=== PATIENT | female | born 1985 | race Caucasian/White ===

== ENCOUNTER 2016-09-28 06:01 | Day surgery (SDC) | payer OTHER ==
[2016-09-24 10:25] VITALS: BMI 32.9
[2016-09-28 06:30] VITALS: PULSE 63; TEMP 97.9
[2016-09-28] MEDS ORDERED: MIDAZOLAM 2 MG/2 ML VIAL ONE (06:48)
[2016-09-28] MEDS ORDERED: fentaNYL (PF) 50 MCG/ML 2 ML AMP ONE (06:49)
[2016-09-28] MEDS ORDERED: BENZOCAINE SPRAY 100 APPLIC/CAN MUCOUS MEM ONE ×3 (06:58→07:17)
[2016-09-28] MEDS ORDERED: SODIUM CHLORIDE 0.9% 500 ML IV ONE (07:06)
[2016-09-28] MEDS ORDERED: MIDAZOLAM 2 MG/2 ML VIAL IVP ONE (07:17)
[2016-09-28] MEDS ORDERED: fentaNYL (PF) 50 MCG/ML 2 ML AMP IV ONE (07:17)
[2016-09-28] MEDS ORDERED: SODIUM CHLORIDE 0.9% 1,000 ML IV SCH (07:45)
--- NOTE | 2016-09-28 07:52 | ECHOT ---
DATE OF SERVICE: INDICATION: Evaluation of cardiac source for TIA. PROCEDURE: After explaining the procedure to the patient as well as risks and complications, blood pressure, heart rate, O2 saturation was monitored. The throat was sprayed with Cetacaine. She received 2 mg of intravenous Versed, 50 mcg intravenous fentanyl. The probe was introduced into the esophagus without difficulty. Images were obtained. The probe was removed. There was no immediate complication. FINDINGS: Left atrial size is normal. Left atrial appendage is normal. Left ventricle size and systolic function normal. The aortic valve, mitral valve, tricuspid valve are normal. Descending thoracic aortic appears to be normal. Contrast bubble study revealed no evidence of shunting across the interatrial septum with Valsalva maneuver. There was no pericardial effusion. Doppler pulse wave obtained revealed mild mitral and tricuspid regurgitation with trace aortic regurgitation and there was no shunting by color Doppler study. CONCLUSION: 1. Normal left ventricular size and systolic function. 2. Normal appearance of left atrial appendage. 3. No evidence of shunting across the interatrial septum. 4. Mild mitral, tricuspid with trace aortic regurgitation. 5. No pericardial effusion. 6. Normal appearance of the descending thoracic aorta. FINDINGS: FINAL IMPRESSION:
[2016-09-28 08:50] VITALS: RESP 18
[2016-09-28] MEDS ORDERED: NON-FORMULARY DRUG (Aspirin Ec 162 MG) PO SCH (09:00)
[2016-09-28] MEDS ORDERED: IODINE TOPICAL SCH (09:00)
[2016-09-28] MEDS ORDERED: NON-FORMULARY DRUG (Cod Liver Oil [Cod Liver Oil] 1 CAP) PO SCH (09:00)
[2016-09-28] MEDS ORDERED: NON-FORMULARY DRUG (L.Acidoph,Paracasei, B.Lactis [Probiotic] 1 CAP) PO SCH (09:00)
[2016-09-28] MEDS ORDERED: NON-FORMULARY DRUG (Vitamin B Complex [Vitamin B Complex] 1 CAP) PO SCH (09:00)
[2016-09-28] MEDS ORDERED: MAGNESIUM OXIDE 400 MG TAB PO SCH (09:00)
[2016-09-28] MEDS ORDERED: [UNRECOGNIZED DRUG - REMARK] PO SCH (09:00)
[2016-09-28 10:00] VITALS: BP 110/68
== END 2016-09-28 09:22 | disposition home or self-care (01) ==
LOC: CATHCVL 06:01
PROVIDERS: ATTEND Internal Medicine Interventional Cardiology
DX: Z86.73 Personal history of transient ischemic attack (TIA), and cerebral infarction without residual deficits (principal); I08.3 Combined rheumatic disorders of mitral, aortic and tricuspid valves
CPT/HCPCS: 93312; 93320; 93325; 81025; J2250; J3010

== ENCOUNTER → 2016-10-08 | Outpatient (CLI) | payer OTHER ==
[2016-10-08 13:47] LABS: CH 30.4; CHCM 33.7; HCT 41.8 % (34.0-46.0); HDW 2.44; MCH 30.3 pg (25.0-35.0); MCHC 33.3 g/dL (31.0-37.0); MCV 90.7 fL (80.0-100.0); Mean Platelet Volume 7.9; RBC 4.61 m/uL (3.80-5.40); RDW 13.3 % (11.5-15.5); WBC 5.9 k/uL (3.8-10.6)
[2016-10-08 14:07] LABS: ALT 34 U/L (9-52); AST 23 U/L (14-36); Alkaline Phosphatase 61 U/L (38-126); Anion Gap 10 mmol/L; Blood Urea Nitrogen 12 mg/dL (7-17); C Reactive Protein <5.0 mg/L (<10.0); Calcium 9.4 mg/dL (8.4-10.2); Carbon Dioxide 28 mmol/L (22-30); Chloride 102 mmol/L (98-107); Cholesterol 158 mg/dL (<200); Glucose 76 mg/dL (74-99); HDL Cholesterol 94 mg/dL (40-60); Non-African American GFR(MDRD) >60 (>60 ml/min/1.73 sqM); Potassium 4.7 mmol/L (3.5-5.1); Rheumatoid Factor, Qnt <9 IU/mL (<12); Sodium 140 mmol/L (137-145); Total Bilirubin 0.7 mg/dL (0.2-1.3); Triglycerides 24 mg/dL (<150)
[2016-10-08 15:06] LABS: Erythrocyte Sedimentation Rate 4 mm/hr (0-20)
[2016-10-08 19:40] LABS: ANA w/Reflex to Titer NEGATIVE (NEGATIVE)
== END | disposition home or self-care (01) ==
LOC: LABWHC1 12:40
PROVIDERS: ATTEND Internal Medicine
DX: I73.00 Raynaud's syndrome without gangrene (principal); D69.1 Qualitative platelet defects; G43.409 Hemiplegic migraine, not intractable, without status migrainosus; E03.9 Hypothyroidism, unspecified; E55.9 Vitamin D deficiency, unspecified
CPT/HCPCS: 36415; 80053; 80061; 82306; 84443; 84481; 85027; 85652; 86038; 86140; 86431

== ENCOUNTER → 2017-07-29 | Outpatient (CLI) | payer OTHER ==
--- NOTE | 2017-07-29 11:31 | ECHOS ---
STRESS ECHOCARDIOGRAM DATE OF SERVICE: 07/29/2017 MEDICATIONS:: Synthroid, aspirin, nitro, magnesium. BASELINE HEART RATE: 79 BASELINE BLOOD PRESSURE: 141/38 MAXIMUM HEART RATE: 165 MAXIMUM BLOOD PRESSURE: 186/100 85% MPHR: 160 100% MPHR: 188 METS: 11.9 MAXIMUM STAGE REACHED: IV TOTAL EXERCISE TIME: 10 minutes INDICATIONS: Angina. CLINICAL INFORMATION: The patient was exercised for a total period of 10 minutes. Peak heart rate 165 was achieved. Maximum blood pressure 186/100 mmHg was noted. The resting EKG shows normal sinus rhythm with normal VA interval and QRS duration and normal ST-T waves. No ST- segment depression suggestive of ischemia is noted. The baseline echocardiographic images reveal normal left ventricular chamber size with normal left ventricular systolic function. In the immediate postexercise, normal increase in the wall thickness and contractility is noted. FINAL IMPRESSION: This stress echocardiographic study is negative for stress-induced ischemia. EKG portion of the stress test is not suggestive of ischemia. The patient's exercise tolerance is normal. MMODL / IJN: [id number] /
== END | disposition home or self-care (01) ==
LOC: RADNMMAIN 09:05
PROVIDERS: ATTEND Internal Medicine
DX: I20.1 Angina pectoris with documented spasm (principal)
CPT/HCPCS: 93017; 93350

== ENCOUNTER → 2017-09-29 | Outpatient (CLI) | payer OTHER ==
[2017-09-29 13:07] LABS: T4, Free (Free Thyroxine) 0.85 ng/dL (0.78-2.19)
== END | disposition home or self-care (01) ==
LOC: LABWHC1 12:21
PROVIDERS: ATTEND Internal Medicine
DX: E03.9 Hypothyroidism, unspecified (principal)
CPT/HCPCS: 36415; 84439; 84443; 84481

== ENCOUNTER 2017-11-19 10:23 | Emergency (ER) | payer OTHER ==
[2017-11-19 10:38] VITALS: BP 115/72; PULSE 93; RESP 17; TEMP 98.6
--- NOTE | 2017-11-19 11:32 | XR ---
Soft tissue neck HISTORY: hair tie caught in throat, foreign body, pain 2 views of the neck There are overlying artifacts. No radiopaque foreign body evident. Airway is patent. Epiglottis shows a normal appearance in profile. Loss of lordosis in the cervical spine may be positional or due to m uscle spasm. Disc spaces maintained. Prevertebral soft tissues are normal. Cervical vertebral bodies show preserved height, alignment, and bone mineralization. IMPRESSION: No significant abnormalities evident, follow-up as indicated
--- NOTE | 2017-11-19 12:30 | ED ---
General Adult HPI - General Chief complaint: Recheck/Abnormal Lab/Rx Stated complaint: Hair tie stuck in throat Time Seen by Provider: 11/19/17 12:09 Source: patient, RN notes reviewed Mode of arrival: ambulatory Limitations: no limitations - History of Present Illness Initial comments: 32-year-old female presents to the emergency department with a chief complaint of throat irritation. She states that she was doing her child's hair and she accidentally swallowed one of the rubber bands. She states she now has some irritation to the right side of her throat. She states she is not having shortness of breath she's not having difficulty breathing. She feels as if it might be stuck to the right side of her throat. She states she does not feel that she's inhaled it. She states that she is not having any trouble eating. She was concerned due to the continued irritation so she called her doctor and was referred here. Patient denies any recent fever, chills, shortness of breath , chest pain, back pain, abdominal pain, nausea vomiting, numbness or tingling, dysuria or hematuria, constipation or diarrhea, headaches or visual changes, or any other current symptoms. - Related Data Home Medications Medication Instructions Recorded Confirmed Pnv with Ca,No.71/Iron/FA 1 tab PO DAILY 07/03/14 09/24/16 [Vol-Plus Tablet] Aspirin EC [Ecotrin Low Dose] 162 mg PO DAILY 01/30/16 09/24/16 Cod Liver Oil 1 cap PO DAILY 01/30/16 09/24/16 L.acidoph,Paracasei, B.lactis 1 cap PO DAILY 01/30/16 09/24/16 [Probiotic] Magnesium Oxide [Mag-Ox] 400 mg PO DAILY 01/30/16 09/24/16 Vitamin B Complex 1 cap PO DAILY 01/30/16 09/24/16 Iodine Topical 1 applicate TOPICAL DAILY 09/24/16 09/24/16 Allergies Allergy/AdvReac Type Severity Reaction Status Date / Time morphine Allergy Rash/Hives Verified 11/19/17 10:34 Review of Systems ROS Statement: Those systems with pertinent positive or pertinent negative responses have been documented in the HPI. ROS Other: All systems not noted in ROS Statement are negative. Past Medical History Past Medical History: Chest Pain / Angina, CVA/TIA, Thyroid Disorder Additional Past Medical History / Comment(s): "sticky platelet syndrome", hx SVT , lacie's thyroiditis,TIA-memory recall diminished History of Any Multi-Drug Resistant Organisms: None Reported Past Surgical History: Adenoidectomy, Section, Tonsillectomy Additional Past Surgical History / Comment(s): leep cervical displasia,c- section x 4 Past Anesthesia/Blood Transfusion Reactions: No Reported Reaction Additional Past Anesthesia/Blood Transfusion Reaction / Comment(s): no hx blood transfusion Past Psychological History: No Psychological Hx Reported Smoking Status: Never smoker Past Alcohol Use History: None Reported Past Drug Use History: None Reported - Past Family History Father Family Medical History: No Reported History Mother Family Medical History: Cancer Additional Family Medical History / Comment(s): AAA; multiple miscarriages Brother(s) Family Medical History: No Reported History Sister(s) Family Medical History: No Reported History Daughter(s) Additional Family Medical History / Comment(s): gene mutation - vascular ehlors danlos syndrome-not confirmed General Exam Limitations: no limitations General appearance: alert, in no apparent distress Head exam: Present: atraumatic, normocephalic, normal inspection Eye exam: Present: normal appearance, PERRL, EOMI. Absent: scleral icterus, conjunctival injection, periorbital swelling Neck exam: Present: normal inspection. Absent: tenderness, meningismus, lymphadenopathy Respiratory exam: Present: normal lung sounds bilaterally. Absent: respiratory distress, wheezes, rales, rhonchi, stridor Cardiovascular Exam: Present: regular rate, normal rhythm, normal heart sounds. Absent: systolic murmur, diastolic murmur, rubs, gallop, clicks Neurological exam: Present: alert, oriented X3 Psychiatric exam: Present: normal affect, normal mood Skin exam: Present: warm, dry, intact, normal color. Absent: rash Course Vital Signs 11/19/17 10:34 Temperature 98.6 F Pulse Rate 93 Respiratory 17 Rate Blood Pressure 115/72 O2 Sat by Pulse 97 Oximetry Medical Decision Making - Medical Decision Making 32-year-old female presents for concern for foreign body in throat. This time patient is having no difficulty breathing soft tissue x-ray neck shows no acute process. We used a laryngeal scope to look further into the patient's airway and we do not see any foreign body. At this time we did discuss the risk of possible aspiration leading to pneumonia and an illness. We did discuss what to watch for home for these type symptoms and when to come to the emergency department. We did discuss return parameters and follow-up and all the patient' s questions. They stated they understood and management this plan. All questions have been answered. They will be discharged. - Radiology Data Radiology results: report reviewed, image reviewed Disposition Clinical Impression: Foreign body sensation in throat Disposition: HOME SELF-CARE Condition: Stable Instructions: Foreign Body in Pharynx (ED) Additional Instructions: Please use medication as discussed. Please follow up with family doctor if symptoms have not improved over the next two days. Please return to the emergency room if your symptoms increase or worsen or for any other concerns. Referrals: Victoriano Canales MD [Primary Care Provider] - 1-2 days Stalin Griffin MD [STAFF PHYSICIAN] - 1-2 days Aydin Hodge MD [STAFF PHYSICIAN] - 1-2 days Time of Disposition: 12:30
== END 2017-11-19 12:41 | disposition home or self-care (01) ==
LOC: EC 10:23
DX: R09.89 Other specified symptoms and signs involving the circulatory and respiratory systems (principal); Z79.82 Long term (current) use of aspirin; Z79.899 Other long term (current) drug therapy; Z88.5 Allergy status to narcotic agent
CPT/HCPCS: 70360; 99283

== ENCOUNTER → 2021-07-24 | Outpatient (CLI) | payer OTHER ==
--- NOTE | 2021-07-24 14:03 | US ---
EXAMINATION TYPE: US carotid duplex BILAT DATE OF EXAM: 07/24/2021 COMPARISON: NONE CLINICAL HISTORY: R09.89 carotid bruit. EXAM MEASUREMENTS: RIGHT: Peak Systolic Velocity (PSV) cm/sec ----- Right CCA: 99.5 ----- Right ICA: 128.6 ----- Right ECA: 110.8 ICA/CCA ratio: 1.3 RIGHT: End Diastole cm/sec ----- Right CCA: 23.6 ----- Right ICA: 49.4 ----- Right ECA: 17.1 LEFT: Peak Systolic Velocity (PSV) cm/sec ----- Left CCA: 107.6 ----- Left ICA: 107.6 ----- Left ECA: 88.2 ICA/CCA ratio: 1.0 LEFT: End Diastole cm/sec ----- Left CCA: 28.4 ----- Left ICA: 39.7 ----- Left ECA: 12.3 VERTEBRALS (direction of flow): Right Vertebral: Antegrade Left Vertebral: Antegrade Rhythm: Normal Atheromatous plaquing be present at the internal carotid artery origin causing some moderate narrowin g of the right internal carotid artery, turbulent flow is evident. IMPRESSION: 1. Elevated velocities suggesting moderate narrowing between 50 and 69% right internal carotid artery . Consider confirmation with CTA carotid arteries. Criteria for Assigning % of Stenosis / Diameter reduction (Estimation based on the indirect measurements of the internal carotid artery velocities (ICA PSV). 1. Normal (no stenosis)=ICA PSV < 125 cm/s: ratio < 2.0: ICA EDV<40 cm/s. 2. Less than 50% stenosis=ICA PSV < 125 cm/s: ratio < 2.0: ICA EDV<40 cm/s. 3. 50 to 69% stenosis=ICA PSV of 125 to 230 cm/s: ration 2.0 ? 4.0: ICA EDV 40-100 cm/s. 4. Greater than 70% stenosis to near occlusion= ICA PSV > 230 cm/s: ratio > 4.0: ICA EDV > 100 cm/s. 5. Near occlusion= ICA PSV velocities may be low or undetectable: variable ratio and ICA EDV. 6. Total occlusion=unable to detect flow.
== END | disposition home or self-care (01) ==
LOC: RADUSWWP 12:24
PROVIDERS: ATTEND Family Medicine
DX: R09.89 Other specified symptoms and signs involving the circulatory and respiratory systems (principal)
CPT/HCPCS: 93880

== ENCOUNTER → 2021-10-17 | Outpatient (CLI) | payer OTHER ==
--- NOTE | 2021-10-17 12:20 | CT ---
EXAMINATION TYPE: CT angio head neck DATE OF EXAM: 10/17/2021 COMPARISON: Carotid ultrasound 07/24/2021 HISTORY: 36-year-old female I65.29, Occlusion and stenosis of carotid artery TECHNIQUE: Contiguous axial scanning of the head and neck performed with IV Contrast, patient injecte d with 65 ml mL of Isovue 370. Coronal and sagittal MIP reconstructions performed. 3-D reconstruction s generated on a dedicated independent workstation. CT DLP: 407 mGycm Automated exposure control for dose reduction was used. FINDINGS: NECK: Conventional vessel branching anatomy. The bilateral vertebral arteries are patent throughout the course. The bilateral common carotid arteries are patent. The right ICA is diffusely smaller in caliber compared to the left with a diameter of 3.3 mm versus 5 .4 mm on the contralateral side. No abnormal beaded configuration or focal stenosis is seen. NASCET criteria was utilized. We note asymmetric inward bowing of the left vocal fold, thin cut axial image 97. Direct visualizatio n to exclude a mucosal lesion. Correlate for any voice changes. Lobulated appearance to the thyroid gland. Thyroid ultrasound can assess for any underlying nodules. HEAD: Air-fluid levels within bilateral maxillary sinuses. The V4 segment right vertebral artery becomes hypoplastic after the PICA takeoff. Otherwise, vertebral and basilar arteries are patent as is the remainder of the posterior circulation .. Dural venous sinuses are patent. Congenital hypoplasia left transverse sinus. The internal carotid arteries are patent without significant stenosis. Hypoplastic A1 segment right anterior cerebral artery. Remainder of the anterior circulation is patent. No aneurysmal change identified. IMPRESSION: NECK: 1. THE RIGHT ICA SHOWS A MILD, DIFFUSELY SMALLER CALIBER WITH A DIAMETER OF 3.3 MM VERSUS 5.4 MM ON T HE CONTRALATERAL SIDE. NO ABNORMAL BEADED CONTOUR OR FOCAL STENOSIS. FINDINGS MAY BE ON A CONGENITAL BASIS. 2. SLIGHT INWARD BOWING OF THE LEFT VOCAL FOLD. DIRECT VISUALIZATION TO EXCLUDE A MUCOSAL LESION HERE . CORRELATE FOR ANY VOICE CHANGES. 3. LOBULATED THYROID GLAND. THYROID ULTRASOUND CAN ASSESS FOR ANY UNDERLYING NODULES. HEAD: 4. 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 AL SO, HYPOPLASTIC A1 SEGMENT RIGHT ANTERIOR CEREBRAL ARTERY. 5. NO LARGE VESSEL INTRACRANIAL ARTERIAL OCCLUSION, SIGNIFICANT STENOSIS, OR ANEURYSMAL CHANGE IS SEE N. 6. AIR-FLUID LEVELS IN THE BILATERAL MAXILLARY SINUSES MAY BE SEEN WITH ACUTE SINUSITIS. CLINICALLY C ORRELATE.
== END | disposition home or self-care (01) ==
LOC: RADCTMAIN 07:57
PROVIDERS: ATTEND Family Medicine
DX: I65.29 Occlusion and stenosis of unspecified carotid artery (principal)
CPT/HCPCS: 70496; 70498; Q9967

== ENCOUNTER → 2021-11-06 | Outpatient (CLI) | payer OTHER ==
--- NOTE | 2021-11-07 07:37 | US ---
EXAMINATION TYPE: US thyroid st tissue head/neck DATE OF EXAM: 11/06/2021 COMPARISON: None CLINICAL HISTORY: E04.[address] showed nodule, patient states her thyroid levels ar e normal. GLAND SIZE: Right Lobe: 1.9 x 1.5 cm Overall Parenchyma: heterogenous Left Lobe: 4.9 x 1.9 x 1.7 cm Overall Parenchyma: heterogeneous Isthmus Thickness: cm NODULES RIGHT: # of nodules measured on right: 0 LEFT: # of nodules measured on left: 0 ISTHMUS: # of nodules measured in the isthmus: 1 1. 0.5 X 0.4 x 0.2 cm cystic or almost completely cystic, anechoic nodule, which is wider than tall , with smooth margins, without echogenic foci. Prior size: no previous Bilateral neck scanned, no evidence of lymphadenopathy. IMPRESSION: Diminutive right thyroid lobe. Subcentimeter nonspecific cystic nodule thyroid isthmus.
== END | disposition home or self-care (01) ==
LOC: RADUSWWP 16:20
PROVIDERS: ATTEND Family Medicine
DX: E04.1 Nontoxic single thyroid nodule (principal)
CPT/HCPCS: 76536

== ENCOUNTER 2021-12-07 20:40 | Emergency (ER) | payer OTHER ==
[2021-12-07 21:00] VITALS: TEMP 97.2
[2021-12-07 21:04] LABS: Glucose,Whole Blood 106 mg/dL (75-99)
--- NOTE | 2021-12-07 23:37 | ED ---
General Adult HPI - General Chief complaint: Weakness Stated complaint: Migraine, Vision problems, Numbness Time Seen by Provider: 12/07/21 23:36 Source: patient Mode of arrival: ambulatory Limitations: no limitations - History of Present Illness Initial comments: Patient presents to the ED stating that she is concerned about have a possible TIA. 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 Patient states that she awoke at about 8:30 this morning feeling disoriented, which she states is how her TIAs usually begin. Patient states that she felt fine when she went to sleep at about 10 PM last night. Patient states that she then developed right arm and right-sided face tingling and right gina-visual field changes. Patient states that her symptoms resolved later in the morning, but then returned again this evening, so she decided to come to the ED. Patient states that her neurological deficits have currently resolved, and she currently just has a mild posterior headache, as well as fatigue. Patient states that she has taken a total of 9 aspirin 81 mg tabs today. Patient denies trauma or injury, sudden onset of headache, LOC, neck pain or stiffness, fever or chills, focal weakness, speech difficulty, neck/back/extremity pain, chest pain or pressure, dyspnea, dizziness, palpitations, nausea/vomiting/diarrhea, abdominal pain, dysuria or urinary symptoms, or any other symptoms or complaints. Patient denies drug or alcohol use. 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 - Related Data Home Medications Medication Instructions Recorded Confirmed Pnv with Ca,No.71/Iron/FA 1 tab PO DAILY 07/03/14 09/24/16 [Vol-Plus Tablet] Aspirin EC [Ecotrin Low Dose] 162 mg PO DAILY 01/30/16 09/24/16 Cod Liver Oil 1 cap PO DAILY 01/30/16 09/24/16 L.acidoph,Paracasei, B.lactis 1 cap PO DAILY 01/30/16 09/24/16 [Probiotic] Magnesium Oxide [Mag-Ox] 400 mg PO DAILY 01/30/16 09/24/16 Vitamin B Complex 1 cap PO DAILY 01/30/16 09/24/16 Iodine Topical 1 applicate TOPICAL DAILY 09/24/16 09/24/16 Allergies Allergy/AdvReac Type Severity Reaction Status Date / Time morphine Allergy Rash/Hives Verified 12/07/21 21:00 Review of Systems ROS Statement: Those systems with pertinent positive or pertinent negative responses have been documented in the HPI. ROS Other: All systems not noted in ROS Statement are negative. Past Medical History Past Medical History: Chest Pain / Angina, CVA/TIA, Thyroid Disorder Additional Past Medical History / Comment(s): "sticky platelet syndrome", hx SVT, lacie's thyroiditis,TIA-memory recall diminished History of Any Multi-Drug Resistant Organisms: None Reported Past Surgical History: Adenoidectomy, Section, Tonsillectomy Additional Past Surgical History / Comment(s): leep cervical displasia, x 4 Past Anesthesia/Blood Transfusion Reactions: No Reported Reaction Additional Past Anesthesia/Blood Transfusion Reaction / Comment(s): no hx blood transfusion Past Psychological History: No Psychological Hx Reported Smoking Status: Never smoker Past Alcohol Use History: None Reported Past Drug Use History: None Reported - Past Family History Father Family Medical History: No Reported History Mother Family Medical History: Cancer Additional Family Medical History / Comment(s): AAA; multiple miscarriages Brother(s) Family Medical History: No Reported History Sister(s) Family Medical History: No Reported History Daughter(s) Additional Family Medical History / Comment(s): gene mutation - vascular ehlors danlos syndrome-not confirmed General Exam Limitations: no limitations General appearance: alert, in no apparent distress Head exam: Present: atraumatic, normocephalic Eye exam: Present: normal appearance, PERRL, EOMI ENT exam: Present: mucous membranes moist Neck exam: Present: other (Trachea is in midline). Absent: tenderness Respiratory exam: Present: normal lung sounds bilaterally. Absent: respiratory distress, wheezes, rales, rhonchi, stridor Cardiovascular Exam: Present: regular rate, normal rhythm, normal heart sounds, other (Normal radial pulses bilaterally) GI/Abdominal exam: Present: soft. Absent: distended, tenderness, guarding Extremities exam: Present: full ROM. Absent: tenderness, pedal edema, calf tenderness Neurological exam: Present: alert, oriented X3, CN II-XII intact, other (NIH stroke scale score = 0). Absent: motor sensory deficit Psychiatric exam: Present: normal affect, normal mood Skin exam: Present: warm, dry, intact, normal color Course Vital Signs 12/07/21 12/08/21 20:54 00:20 Temperature 97.2 F L Pulse Rate 66 68 Respiratory 22 18 Rate Blood Pressure 125/84 133/90 O2 Sat by Pulse 100 99 Oximetry - Reevaluation(s) Reevaluation #1: 12/08/21 00:50 Patient continues to deny having any neurological deficits while in the ED, and she continues to have a normal/nonfocal neurological exam. Patient remains alert and breathing comfortably. Patient is aware of her test results. I have discussed with the patient my recommendation to admit her to the hospital for observation and further evaluation, but patient states that she has been through this numerous times, and she is certain that her symptoms are secondary to her underlying sticky platelet syndrome. Given this, she states that she does not want to be admitted to the hospital, and she understands the risks. Patient agrees to follow up closely with her primary care provider. Patient was clearly explained return and follow-up instructions, and she was instructed to have a low threshold for return to the emergency department should her symptoms return or worsen. Patient feels comfortable with this plan. EKG Findings - EKG Comments: EKG Findings:: Normal sinus rhythm, ventricular rate of 61 bpm, normal NC and Q RS intervals, normal interval, normal axis, no ST or T-wave abnormality Medical Decision Making - Medical Decision Making Patient denies having any neurological deficits while in the ED, and she has had a normal neurological exam while in the ED. Patient's labs and imaging studies are unremarkable. Patient states that she has had similar symptoms numerous times in the past, and she states that she is certain that her symptoms are secondary to her underlying sticky platelet syndrome. As such, patient does not want to be admitted to the hospital for observation and further evaluation. Patient states that she will return if her symptoms return and persist. Patient also agrees to follow up closely with her primary care provider. Will discharge patient home at this time per her request. Patient feels comfortable with this plan. - Lab Data Result diagrams: 12/08/21 00:14 12/08/21 00:14 Lab Results 12/07/21 12/08/21 12/08/21 Range/Units 21:02 00:14 00:14 WBC 7.3 (3.8-10.6) k/uL RBC 4.59 (3.80-5.40) m/uL Hgb 12.9 (11.4-16.0) gm/dL Hct 40.6 (34.0-46.0) % MCV 88.5 (80.0-100.0) fL MCH 28.1 (25.0-35.0) pg MCHC 31.8 (31.0-37.0) g/dL RDW 13.2 (11.5-15.5) % Plt Count 247 (150-450) k/uL MPV 8.3 Neutrophils % 60 % Lymphocytes % 29 % Monocytes % 5 % Eosinophils % 3 % Basophils % 1 % Neutrophils # 4.4 (1.3-7.7) k/uL Lymphocytes # 2.1 (1.0-4.8) k/uL Monocytes # 0.4 (0-1.0) k/uL Eosinophils # 0.2 (0-0.7) k/uL Basophils # 0.1 (0-0.2) k/uL PT 10.5 (9.0-12.0) sec INR 1.0 (<1.2) APTT 24.7 (22.0-30.0) sec Sodium (137-145) mmol/L Potassium (3.5-5.1) mmol/L Chloride (98-107) mmol/L Carbon Dioxide (22-30) mmol/L Anion Gap mmol/L BUN (7-17) mg/dL Creatinine (0.52-1.04) mg/dL Est GFR (CKD-EPI)AfAm (>60 ml/min/1.73 sqM) Est GFR (CKD-EPI)NonAf (>60 ml/min/1.73 sqM) Glucose (74-99) mg/dL POC Glucose (mg/dL) 106 H (75-99) mg/dL POC Glu Net Ui Developer ID Bibiana Gallegos Calcium (8.4-10.2) mg/dL Total Bilirubin (0.2-1.3) mg/dL AST (14-36) U/L ALT (4-34) U/L Alkaline Phosphatase (38-126) U/L Troponin I (0.000-0.034) ng/mL Total Protein (6.3-8.2) g/dL Albumin (3.5-5.0) g/dL 12/08/21 12/08/21 Range/Units 00:14 00:14 WBC (3.8-10.6) k/uL RBC (3.80-5.40) m/uL Hgb (11.4-16.0) gm/dL Hct (34.0-46.0) % MCV (80.0-100.0) fL MCH (25.0-35.0) pg MCHC (31.0-37.0) g/dL RDW (11.5-15.5) % Plt Count (150-450) k/uL MPV Neutrophils % % Lymphocytes % % Monocytes % % Eosinophils % % Basophils % % Neutrophils # (1.3-7.7) k/uL Lymphocytes # (1.0-4.8) k/uL Monocytes # (0-1.0) k/uL Eosinophils # (0-0.7) k/uL Basophils # (0-0.2) k/uL PT (9.0-12.0) sec INR (<1.2) APTT (22.0-30.0) sec Sodium 137 (137-145) mmol/L Potassium 3.9 (3.5-5.1) mmol/L Chloride 108 H (98-107) mmol/L Carbon Dioxide 24 (22-30) mmol/L Anion Gap 5 mmol/L BUN 10 (7-17) mg/dL Creatinine 0.69 (0.52-1.04) mg/dL Est GFR (CKD-EPI)AfAm >90 (>60 ml/min/1.73 sqM) Est GFR (CKD-EPI)NonAf >90 (>60 ml/min/1.73 sqM) Glucose 91 (74-99) mg/dL POC Glucose (mg/dL) (75-99) mg/dL POC Glu Net Ui Developer ID Calcium 9.1 (8.4-10.2) mg/dL Total Bilirubin 0.4 (0.2-1.3) mg/dL AST 19 (14-36) U/L ALT 21 (4-34) U/L Alkaline Phosphatase 45 (38-126) U/L Troponin I <0.012 (0.000-0.034) ng/mL Total Protein 6.9 (6.3-8.2) g/dL Albumin 4.2 (3.5-5.0) g/dL - Radiology Data Radiology results: image reviewed (Chest x-ray: No acute cardiopulmonary disease) Noncontrast head CT: Negative unenhanced head CT scan. Disposition Clinical Impression: Headache, Paresthesias, Visual changes Disposition: HOME SELF-CARE Condition: Stable Instructions (If sedation given, give patient instructions): Acute Headache (ED), Paresthesia (ED) Additional Instructions: Return to the ER immediately should you develop numbness/tingling/weakness, visual changes, new or worsening pain, feeling dizzy or faint, shortness of breath, or new or worsening symptoms. Follow up closely with your primary care provider. Is patient prescribed a controlled substance at d/c from ED?: No Referrals: Khris Holden MD [Primary Care Provider] - 1-2 days Time of Disposition: 01:09
[2021-12-08 00:21] VITALS: BP 133/90; PULSE 68; RESP 18
[2021-12-08 00:26] LABS: Basophils # (A) 0.1 k/uL (0-0.2); Basophils % (A) 1 %; Eosinophils # (A) 0.2 k/uL (0-0.7); Eosinophils % (A) 3 %; HCT 40.6 % (34.0-46.0); HGB 12.9 gm/dL (11.4-16.0); Lymphocytes # (A) 2.1 k/uL (1.0-4.8); Lymphocytes % (A) 29 %; MCH 28.1 pg (25.0-35.0); MCHC 31.8 g/dL (31.0-37.0); MCV 88.5 fL (80.0-100.0); Mean Platelet Volume 8.3; Monocytes # (A) 0.4 k/uL (0-1.0); Monocytes % (A) 5 %; Neutrophils # (A) 4.4 k/uL (1.3-7.7); Neutrophils % (A) 60 %; Platelet Count 247 k/uL (150-450); RBC 4.59 m/uL (3.80-5.40); RDW 13.2 % (11.5-15.5); WBC 7.3 k/uL (3.8-10.6)
--- NOTE | 2021-12-08 00:33 | CT ---
EXAMINATION TYPE: CT brain wo con DATE OF EXAM: 12/08/2021 COMPARISON: None HISTORY: headache CT DLP: 1137.4 mGycm Automated exposure control for dose reduction was used. Ventricles have normal size. There is no mass effect or midline shift. There is no sign of intracrani al hemorrhage. Calvarium is intact. Skull base is intact. There is incomplete aeration of the mastoid sinuses. IMPRESSION: Negative unenhanced head CT scan.
[2021-12-08 00:41] LABS: ALT 21 U/L (4-34); AST 19 U/L (14-36); African American GFR (CKD) >90 (>60 ml/min/1.73 sqM); Albumin 4.2 g/dL (3.5-5.0); Alkaline Phosphatase 45 U/L (38-126); Anion Gap 5 mmol/L; Blood Urea Nitrogen 10 mg/dL (7-17); Calcium 9.1 mg/dL (8.4-10.2); Carbon Dioxide 24 mmol/L (22-30); Chloride 108 mmol/L (98-107); Glucose 91 mg/dL (74-99); Non-African American GFR(CKD) >90 (>60 ml/min/1.73 sqM); Potassium 3.9 mmol/L (3.5-5.1); Sodium 137 mmol/L (137-145); Total Bilirubin 0.4 mg/dL (0.2-1.3); Total Protein 6.9 g/dL (6.3-8.2)
[2021-12-08 00:45] LABS: Partial Thromboplastin Time 24.7 sec (22.0-30.0); Prothrombin Time 10.5 sec (9.0-12.0)
[2021-12-08 01:17] LABS: HCG,Qualitative Serum Not Detected
--- NOTE | 2021-12-08 01:23 | XR ---
EXAMINATION TYPE: XR chest 2V DATE OF EXAM: 12/08/2021 COMPARISON: None HISTORY: Altered mental status TECHNIQUE: 2 views FINDINGS: Heart and mediastinum are normal. Lungs are clear. Diaphragm is normal. Bony thorax appears normal. IMPRESSION: Normal chest.
== END 2021-12-08 01:21 | disposition home or self-care (01) ==
LOC: EC 20:40
DX: R20.2 Paresthesia of skin (principal); R51.9 Headache, unspecified; Z86.73 Personal history of transient ischemic attack (TIA), and cerebral infarction without residual deficits; Z88.5 Allergy status to narcotic agent
CPT/HCPCS: 36415; 70450; 71046; 80053; 84484; 84703; 85025; 85610; 85730; 93005; 99285

== ENCOUNTER → 2025-04-13 | Outpatient (CLI) | payer OTHER ==
[~2025-04-13] MED LIST: SODIUM CHLORIDE 0.9% 250 ML in EMPTY BAG 1 BAG IV PRN
[2025-04-13 11:35] VITALS: BP 100/67; PULSE 62; RESP 16; TEMP 98
[2025-04-13] MEDS: SODIUM CHLORIDE 0.9% 500 ML 500 ML in EMPTY BAG 1 BAG IV PRN (11:35)
[2025-04-13] MEDS: IRON SUCROSE 200 MG in SODIUM CHLORIDE 0.9% 100 ML IVPB NR (11:36)
== END ==
LOC: PROCWHC3 11:32
PROVIDERS: ATTEND Physician Assistant
DX: D50.9 Iron deficiency anemia, unspecified (principal)
CPT/HCPCS: 96365; J1756